=== PATIENT | male | born 2000 | race Caucasian/White ===

== ENCOUNTER 2021-10-08 11:54 | Emergency (ER) | payer OTHER ==
[~2021-10-08] VITALS: Ht 165.1 cm; Wt 84.0 kg
[2021-10-08 12:19] VITALS: BP 135/83
[2021-10-08] MEDS ORDERED: LIDOCAINE HCL/PF 1% 10 MG/ML 5ML VIAL INFIL ONE (12:30)
[2021-10-08] MEDS ORDERED: TETANUS, DIPHTHERIA, PERTUSSIS VAC/PF 0.5ML (>10YR OLD) IM ONE ×2 (12:30→17:00)
[2021-10-08] MEDS ORDERED: ACETAMINOPHEN 325MG TABLET PO ONE (12:30)
[2021-10-08] MEDS ORDERED: BACITRACIN ZINC OINT UDPKT TOP ONE (12:30)
[2021-10-08] MEDS ORDERED: BACITRACIN ZINC OINT UDPKT TOP SCH (17:00)
[2021-10-08] MEDS ORDERED: LIDOCAINE HCL 1% 10 MG/ML 10ML VIAL IJ ONE (17:00)
[2021-10-08] MEDS ORDERED: ACETAMINOPHEN 325MG TABLET PO SCH (17:00)
[2021-10-08] MEDS ORDERED: CEPH500T MT (17:43)
== END 2021-10-08 17:53 | disposition home or self-care (01) ==
LOC: ER 12:34
DX: S61.211A Laceration without foreign body of left index finger without damage to nail, initial encounter (principal); W26.8XXA Contact with other sharp object(s), not elsewhere classified, initial encounter; Y93.89 Activity, other specified; Y92.89 Other specified places as the place of occurrence of the external cause; Y99.0 Civilian activity done for income or pay; Z88.0 Allergy status to penicillin
CPT/HCPCS: 12002; 73130; 90471; 90715; 99283; J3490; Z7610

== ENCOUNTER 2021-10-22 13:19 | Emergency (ER) | payer OTHER ==
[~2021-10-22] VITALS: Ht 162.6 cm; Wt 83.0 kg
[~2021-10-22 13:19] MED LIST: CEPH500T MT
[2021-10-22 13:38] VITALS: BP 137/72
== END 2021-10-22 14:15 | disposition home or self-care (01) ==
LOC: ER 13:19
DX: S61.412D Laceration without foreign body of left hand, subsequent encounter (principal); X58.XXXD Exposure to other specified factors, subsequent encounter
CPT/HCPCS: 99281